=== PATIENT | female | born 1980 | race Caucasian/White ===

== ENCOUNTER 2017-03-14 20:20 | Outpatient (CLI) | payer OTHER ==
[2017-03-14 22:31] LABS: HEMOGLOBIN 12.2 gm/dl (12.3-15.3); RED BLOOD COUNT 4.08 M/UL (4.00-5.10); WHITE BLOOD COUNT 12.9 K/UL (4.5-11.0)
== END 2017-03-15 01:21 | disposition other institution (70) ==
LOC: GENOP 20:20
PROVIDERS: Obstetrics & Gynecology
DX: O36.8130 Decreased fetal movements, third trimester, not applicable or unspecified (principal); O16.3 Unspecified maternal hypertension, third trimester; Z3A.34 34 weeks gestation of pregnancy
CPT/HCPCS: 36415; 81001; 82248; 82565; 82962; 84450; 84460; 84550; 85025; 85379; 85384; 85610; 85730; 96360; 96361; 96367; 96368; 96372; 96375; J0702; J3475; J7030

== ENCOUNTER 2017-03-22 19:27 | Observation (INO) | payer OTHER ==
[~2017-03-22] VITALS: Ht 154.9 cm; Wt 121.6 kg
[2017-03-22 20:29] LABS: HEMOGLOBIN 12.5 gm/dl (12.3-15.3); RED BLOOD COUNT 4.15 M/UL (4.00-5.10); WHITE BLOOD COUNT 13.9 K/UL (4.5-11.0)
[2017-03-22 20:47] LABS: BUN/CREATININE RATIO 16 (0-10)
== END 2017-03-23 10:49 | disposition home or self-care (01) ==
LOC: GENOP 19:27 → OB 21:34
PROVIDERS: ADMIT Obstetrics & Gynecology
DX: O10.913 Unspecified pre-existing hypertension complicating pregnancy, third trimester (principal); O99.213 Obesity complicating pregnancy, third trimester; E66.01 Morbid (severe) obesity due to excess calories; O99.333 Smoking (tobacco) complicating pregnancy, third trimester; F17.210 Nicotine dependence, cigarettes, uncomplicated; Z3A.36 36 weeks gestation of pregnancy; Z79.899 Other long term (current) drug therapy
CPT/HCPCS: 36415; 80053; 80076; 81001; 82962; 84550; 85025; 85379; 85384; 85610; 85730; G0378; G0463

== ENCOUNTER 2017-03-28 06:50 | Inpatient (IN) | payer OTHER ==
[~2017-03-28] VITALS: Ht 154.9 cm; Wt 122.0 kg
[2017-03-29 04:09] LABS: HEMOGLOBIN 11.2 gm/dl (12.3-15.3)
[2017-03-30] MEDS ORDERED: NORCO 10-325 T1 EACH PO (12:49)
== END 2017-03-30 13:07 | disposition home or self-care (01) | DRG 765 ==
LOC: OB 06:50
PROVIDERS: ADMIT Obstetrics & Gynecology
PROC: 10D00Z1 Extraction of Products of Conception, Low, Open Approach (ICD-10-PCS; principal; 2017-03-28 10:25)
DX: O34.219 Maternal care for unspecified type scar from previous cesarean delivery (principal); Z68.43 Body mass index [BMI] 50.0-59.9, adult; O13.4 Gestational [pregnancy-induced] hypertension without significant proteinuria, complicating childbirth; O09.523 Supervision of elderly multigravida, third trimester; Z3A.37 37 weeks gestation of pregnancy; Z37.0 Single live birth; O24.429 Gestational diabetes mellitus in childbirth, unspecified control; E66.01 Morbid (severe) obesity due to excess calories; F17.210 Nicotine dependence, cigarettes, uncomplicated; O75.89 Other specified complications of labor and delivery; J45.909 Unspecified asthma, uncomplicated; Z79.899 Other long term (current) drug therapy
CPT/HCPCS: 36415; 59025; 81001; 82800; 85014; 85018; 85025; 85461; 86850; 86900; 86901; C9113; J0690; J2274; J2405; J2590; J2765; J2790; J3010; J7030; J7050; J7120

== ENCOUNTER 2021-01-15 21:57 | Emergency (ER) | payer OTHER ==
[~2021-01-15 21:57] MED LIST: NORCO 10-325 T1 EACH PO
== END 2021-01-16 00:50 | disposition home or self-care (01) ==
LOC: ER1 21:57
DX: J20.9 Acute bronchitis, unspecified (principal); J02.9 Acute pharyngitis, unspecified; I10 Essential (primary) hypertension; Z20.822 Contact with and (suspected) exposure to COVID-19
CPT/HCPCS: 0240U; 87081; 87880; 96374; 99283; J1100

== ENCOUNTER 2021-06-22 17:52 | Emergency (ER) | payer OTHER ==
[2021-06-22 20:18] LABS: HEMOGLOBIN 14.4 gm/dl (12.3-15.3); RED BLOOD COUNT 4.77 M/UL (4.00-5.10); WHITE BLOOD COUNT 7.1 K/UL (4.5-11.0)
[2021-06-22 20:36] LABS: BUN/CREATININE RATIO 14 (0-10)
== END 2021-06-23 01:40 | disposition home or self-care (01) ==
LOC: ER1 17:52
PROVIDERS: Physician Assistant
DX: Z23 Encounter for immunization (principal); U07.1 COVID-19; E11.9 Type 2 diabetes mellitus without complications; I10 Essential (primary) hypertension; J45.909 Unspecified asthma, uncomplicated; F17.290 Nicotine dependence, other tobacco product, uncomplicated
CPT/HCPCS: 70450; 71045; 80053; 81001; 84703; 85025; 99285; M0243